=== PATIENT | male | born 1970 | race American Indian/Alaskan Native ===

== ENCOUNTER 2019-10-17 10:50 | Outpatient (CLI) | payer BC ==
[2019-10-17 11:56] LABS: Blood Urea Nitrogen 16 mg/dL (9-20)
--- NOTE | 2019-10-17 13:56 | Cat Scan Report ---
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 TECHNIQUE: Axial CT images were obtained through the abdomen and pelvis before and after after injection of IV c ontrast. 3 plane MIP reconstructions were produced. All CT scans at this location are performed using CT dose reduction for ALARA by means of automated exposure control. COMPARISON: None available. FINDINGS: Aorta: No acute abnormality. Renal arteries: No acute abnormality. Celiac artery: No acute abnormality. Superior mesenteric artery: No acute abnormality. Inferior mesenteric artery: No acute abnormality. Right iliac arteries: No acute abnormality. Left iliac arteries: No acute abnormality. Additional Findings: There are a few 5 mm noncalcified nodular densities within the included right lo wer lung. Lung bases are otherwise clear. There is hepatic steatosis. IVC filter is noted in expected position. Skeletal Structures: No acute osseous abnormality. IMPRESSION: 1. No significant vascular abnormality. No atherosclerotic disease is seen. Signer Name: Abdulkadir Ash MD Signed: 10/17/2019 1:52 PM Workstation Name: [id number]
== END 2019-10-17 10:51 | disposition home or self-care (01) ==
LOC: CT 10:50
PROVIDERS: ATTEND Radiology Diagnostic Radiology
DX: K76.0 Fatty (change of) liver, not elsewhere classified (principal); R91.1 Solitary pulmonary nodule; I70.213 Atherosclerosis of native arteries of extremities with intermittent claudication, bilateral legs
CPT/HCPCS: 36415; 74174; 82565; 84520; Q9967